=== PATIENT | female | born 1950 | race Caucasian/White ===

== ENCOUNTER → 2017-02-03 | Outpatient (CLI) | payer BC ==
[~2017-02-03] MED LIST: ASPEC325 PO; METO50TA16 PO; OXYC-57 PO
--- NOTE | 2017-02-03 13:32 | DIAGNOSTIC IMAGING REPORT ---
EXTREMITY NONVASCULAR LIMITED CLINICAL HISTORY: 66 years-old Female presenting with R07.89 Right-sided chest wall pain right lateral chest wall pain. TECHNIQUE: Real-time grayscale ultrasound imaging of the right chest wall and axilla was performed. Color Doppler was also performed. COMPARISON: None. FINDINGS: At the site of clinical interest along the right chest wall/flank inferior to the right axilla, normal subcutaneous fat and muscle noted. No lymphadenopathy. No fluid collection. No dilated lymphatics. IMPRESSION: 1. No sonographic abnormality at the site of clinical interest. Electronically signed by: Javier Rodriguez M.D. 02/03/2017 1:30 PM Dictated Date/Time: 02/03/2017 1:29 PM
--- NOTE | 2017-02-03 13:41 | DIAGNOSTIC IMAGING REPORT ---
R RIBS UNILATERAL WITH PA CHEST CLINICAL HISTORY: R07.89 Right-sided chest wall pain [id number] COMPARISON STUDY: None. FINDINGS: The lungs are clear. The heart is normal in size. No pleural effusions. No pneumothorax. No acute rib fractures. A 2.6 cm calcified splenic lesion. This is likely benign. IMPRESSION: No rib fractures. No pneumothorax. Electronically signed by: Gopi Trevino M.D. 02/03/2017 1:39 PM Dictated Date/Time: 02/03/2017 1:37 PM
== END | disposition home or self-care (01) ==
LOC: C.ULTR 12:38
PROVIDERS: ATTEND Physician Assistant Medical
DX: R07.89 Other chest pain (principal)

== ENCOUNTER → 2017-02-05 | Outpatient (CLI) | payer BC ==
--- NOTE | 2017-02-05 12:23 | DIAGNOSTIC IMAGING REPORT ---
THORACIC SPINE 3 VIEWS ROUTINE CLINICAL HISTORY: Right-sided back/chest wall pain COMPARISON STUDY: No previous studies for comparison. FINDINGS: The bones are osteopenic. There is ankylosis of the dorsal spine. The paraspinal line is not displaced. No acute fractures or traumatic subluxations are visualized. IMPRESSION: No acute fractures subluxations or destructive lesions are visualized. Electronically signed by: Stefano Johnson M.D. 02/05/2017 12:22 PM Dictated Date/Time: 02/05/2017 12:21 PM
== END | disposition home or self-care (01) ==
LOC: C.RAD 11:40
PROVIDERS: ATTEND Physician Assistant Medical
DX: R07.89 Other chest pain (principal)

== ENCOUNTER → 2017-02-19 | Outpatient (CLI) | payer BC ==
--- NOTE | 2017-02-19 15:57 | MAMMOGRAPHY REPORT ---
BILATERAL DIGITAL SCREENING MAMMOGRAM WITH CAD: 02/19/2017 CLINICAL HISTORY: Routine screening. The patient reported to the technologist that she has ongoing r ight breast tenderness. She had an ultrasound at the hospital on 02/03/2017 of the area of pain infer ior to the right axilla which showed no abnormality. TECHNIQUE: Current study was also evaluated with a Computer Aided Detection (CAD) system. Bilateral CC and MLO views were obtained. The patient returned later the same day for a repeat left CC view d ue to motion artifact, and a repeat right MLO view to include more pectoralis muscle. COMPARISON: Comparison is made to exams dated: 02/19/2016 mammogram, 02/15/2015 mammogram, 02/14/2014 mammogram, 02/13/2013 mammogram, 02/11/2012 mammogram, and 02/09/2011 mammogram - [facility]. BREAST COMPOSITION: The tissue of both breasts is almost entirely fatty. FINDINGS: No suspicious masses, calcifications, or areas of architectural distortion are noted in ei ther breast. There has been no significant interval change compared to prior exams. A few scattered bilateral benign-appearing calcifications are again noted. IMPRESSION: ACR BI-RADS CATEGORY 2: BENIGN There is no mammographic evidence of malignancy in either breast. A 1 year screening mammogram is rec ommended. Also recommend clinical follow-up for right breast pain. The patient will receive written notification of the results. Approximately 10% of breast cancers are not detected with mammography. A negative mammographic report should not delay biopsy if a clinically suggestive mass is present. Stefania Sullivan M.D. ah/:02/19/2017 14:05:33 Spinning Lathe Operator Automatic: Irene SAGASTUME(R)(M), [facility] letter sent: Normal 1/2 BI-RADS Code: ACR BI-RADS Category 2: Benign
== END | disposition home or self-care (01) ==
LOC: C.MAMM 10:38
PROVIDERS: ATTEND Internal Medicine
DX: Z12.31 Encounter for screening mammogram for malignant neoplasm of breast (principal)

== ENCOUNTER 2022-10-05 13:52 | Inpatient (IN) ==
[2022-10-05] MEDS ORDERED: SODIUM CHLORIDE 0.9% 1000ML 1,000 ML IV SCH (14:15)
[2022-10-05] MEDS ORDERED: dilTIAZem HCl 5 MG/ML 5 ML VIAL IV STA (14:19)
[2022-10-05 14:34] LABS: Basophils # (auto) 0.03 K/uL (0-0.2); Basophils % (auto) 0.4 %; Eosinophils # (auto) 0.02 K/uL (0-0.50); Eosinophils % (auto) 0.3 %; Hematocrit (blood only) 40.4 % (37.0-47.0); Hemoglobin 13.7 g/dl (12.0-16.0); Immature Granulocytes # (auto) 0.04 K/uL (0.01-0.20); Immature Granulocytes % (auto) 0.5 %; Lymphocytes # (auto) 1.27 K/uL (1.2-3.4); Lymphocytes % (auto) 16.5 %; Mean Corpuscular Hemoglobin 31.1 pg (25.0-34.0); Mean Corpuscular Hgb Conc 33.9 g/dL (32.0-36.0); Mean Corpuscular Volume 91.6 fL (80.0-100.0); Mean Platelet Volume 11.8 fL (9.4-12.4); Monocytes % (auto) 5.2 %; Neutrophils # (auto) 5.92 K/uL (1.40-6.50); Neutrophils % (auto) 77.1 %; Platelet Count 204 K/uL (130-400); RDW Standard Deviation 43.6 fL (36.4-46.3); Red Blood Count 4.41 M/uL (4.20-5.40); White Blood Count 7.68 K/ul (4.8-10.8)
--- NOTE | 2022-10-05 14:36 | XRay Report ---
XR chest 1V portable HISTORY: 71 years-old Female Dysrhythmia COMPARISON: CTA 06/22/2020 TECHNIQUE: AP view of the chest FINDINGS: Cardiac silhouette is mildly enlarged. Atherosclerosis of the aorta. No pneumothorax, pleural effusio n, airspace consolidation or pulmonary edema. Calcified splenic lesion again noted. Degenerative andrade ges of the shoulders and spine. Left shoulder rotator cuff calcific tendinosis. IMPRESSION: No acute process of the chest. ACT 112: Negative or not required by law. The above report was generated using voice recognition software. It may contain grammatical, syntax o r spelling errors. Electronically signed by: Jeison Rojas M.D. 10/05/2022 2:34 PM
[2022-10-05 14:44] LABS: Albumin Globulin Ratio 1.3 (0.9-2); Albumin Level 3.7 gm/dl (3.4-5.0); BUN Creatinine Ratio 27.8 (10-20); Bilirubin,Total 0.6 mg/dl (0.2-1.0); Calcium 9.5 mg/dl (8.6-10.3); Creatinine Clr Calc Pharmacy 53.9 ml/min; Est GFR (African American) 75.6 ml/min; Est GFR (Non-African American) 65.2 ml/min; Globulin 2.8 gm/dl (2.5-4.0); Magnesium 1.9 mg/dl (1.7-2.4); Potassium 3.9 mmol/L (3.5-5.1); Total Protein 6.5 gm/dl (6.0-8.3)
[2022-10-05 14:50] LABS: Troponin I High Sensitivity 13.1 pg/ml (0-14)
[2022-10-05 14:54] LABS: INR 1.1 (0.9-1.1); Partial Thromboplastin Ratio 0.9; Partial Thromboplastin Time 26.1 Seconds (21.0-31.0); Prothrombin Time 11.7 Seconds (9.0-12.0)
--- NOTE | 2022-10-05 15:08 | Emergency Department Note ---
Impression & Plan Atrial fibrillation with rapid ventricular response, Retrosternal chest pain ED Provider Note INFORMANT: Patient and ED PROVIDER(S): Lowell Martinez MD CHIEF COMPLAINT: Chest pain PLAN: Disposition: Admitted Condition: Good Outpatient prescription management: none Referral: None MEDICAL DECISION MAKING: Patient presented because of chest pain. She was found to be in rapid atrial fibrillation. She received Cardizem prehospital and received a second dose here. Patient was doing well. Her laboratory testing revealed unremarkable CBC and chemistry panel. Twelve-lead ECG on arrival revealed atrial fibrillation with RVR at 124. No ischemia. Patient had an unremarkable chest x-ray. Patient was still noted to be hypertensive and borderline tachycardic but rate was better controlled after the Cardizem. She was given oral metoprolol. Further management will be necessary. Patient and in agreement. Consultation was made with Dr. Campos Menon of the [facility] service. Case was discussed and diagnostics were reviewed. Patient was evaluated in the ER for further management. He will manage anticoagulation after evaluation of patient. Discussed with scheduling manager After review of the information above and other included data, I feel the patient requires admission. Triage Nursing notes reviewed and agree them. Vital Signs: reviewed and remarkable for tachycardia Prior /Outside records reviewed: Cardiac records reviewed. Patient has mitral regurg. Differential diagnosis: ACS premature contractions, electrolyte abnormality, cardiac dysrhythmia, thyroid dysfunction, pulmonary embolism, infection, gastrointestinal, dissection, as well as other pathologies. Diagnostics, as interpreted by me: ECG: Twelve-lead ECG reveals a atrial fibrillation with rapid ventricular response at [address] No ST elevation. Cardiac Monitoring: Cardiac monitoring ordered by me: The patient was placed on continuous cardiac monitoring and observed. It revealed a atrial fibrillation at 108 beats per minute without ectopy or evidence of dysrhythmia. Medical decision rules: none Imaging studies: Chest x-ray. Findings: A chest x-ray was performed and revealed no pneumothorax, effusion, infiltrate, pulmonary edema, free air under the diaphragm, or wide mediastinum. Impression: No acute disease. HPI: The patient is a 71year old female who presents to the Emergency Room with complaints of chest pain. This started this morning around 1130 and is currently resolved. Patient states that lasted well over an hour. She had to rest. She felt too weak to make it home off of her walk so she called her to pick her up. EMS was summoned. The patient also notes the following associated symptoms, feeling clammy and sweaty, shortness of breath. The patient has been given Cardizem 10 mg IV, oral aspirin by EMS for relieving factors. Current pain is rated as 0/10. Patient was found to be in rapid atrial fibrillation with a heart rate up to 170 by EMS. No reported ST elevation. Pt denies LOC, headache, fevers, chills, visual changes, neck pain, nausea, vomiting, abdominal pain, back pain, melena, hematochezia, urinary symptoms, numbness, focal weakness, lymphadenopathy, rash, or other complaints. PAST MEDICAL HISTORY: See Below, mitral regurgitation, hypertension PAST SURGICAL HISTORY: See Below, SOCIAL HISTORY: See Below, HOME MEDICATIONS: See Below ALLERGIES: See Below VITALS: See Below PHYSICAL EXAMINATION: GENERAL: Awake, alert, well-appearing, in no distress HENT: Normocephalic, atraumatic. Oropharynx unremarkable. EYES: Normal conjunctiva. Sclera non-icteric. NECK: Inspection normal. Non-tender. Supple. No nuchal rigidity. FROM. No masses. RESPIRATORY: Clear to auscultation. No wheezes. No rales. Normal respiratory effort. CARDIAC: Tachycardic rate. Irregular rhythm. No murmurs. No rubs. Extremities warm and well perfused. Pulses equal. No JVD. GI: Soft, non-distended. No tenderness to palpation. No rebound or guarding. No masses. RECTAL: Deferred. MUSCULOSKELETAL: Atraumatic. Chest examination reveals no tenderness. The back is symmetrical on inspection without obvious abnormality. There is no CVA tenderness to palpation. No joint edema. LOWER EXTREMITIES: Calves are equal size bilaterally and non-tender. No edema. No discoloration. NEURO: Normal sensorium. No sensory or motor deficits noted. SKIN: No rash or jaundice noted. Past Med/Surg History Medical History Dyslipidemia Heart murmur Hypertension Osteoporosis Surgical History History of ankle surgery Hx of arthroscopic knee surgery Hx of colonoscopy Family History Other No family history of adverse response to anesthesia Denies family history of Ovarian cancer Prostate cancer Myocardial infarction Breast cancer Colorectal cancer Social History Smoking Status: Never smoker Second Hand Exposure: No; Do You Dip or Chew Tobacco: No; Hx Alcohol Use: No Hx Substance Use: No Preferred Language: Bulgarian Communication Ability: Effective Hand Screen Printer Required: No Beliefs That Will Affect Care: None marital status: Current Living Situation: Spouse current occupational status: retired Other Information That Helps Us Care for You: No Feels Safe at Home: Yes Safety Concerns: Feels Safe At This Time Diet: Weight Watchers and regular caffeine: Yes Dental Care, Regularly: Yes Physical Activity Frequency: Daily Seatbelt Use: always Sunscreen Use: Yes Assistive Devices: None Allergies Allergies Allergy/AdvReac Type Severity Reaction Status Date / Time rosuvastatin AdvReac Intermediate myalgia Verified 10/05/22 16:01 alendronate sodium AdvReac Itching Verified 10/05/22 16:01 Home Meds Home Medications Medication Instructions Recorded Confirmed calcium carbonate 600 mg calcium 600 mg PO BID 03/30/19 10/05/22 (1,500 mg) tablet (Calcium) cholecalciferol (vitamin D3) 25 2,000 unit PO QAM 07/11/20 10/05/22 mcg (1,000 unit) capsule Previous Rx's Medication Instructions Recorded irbesartan 150 mg tablet 150 mg PO BID #180 tabs 06/11/22 methylprednisolone 4 mg tablets in 4 mg PO .COMPLEX #21 ea 09/29/22 a dose pack Results & Data (ED) Vital Signs Vital Signs - 24 hr 10/05/22 14:01 10/05/22 14:01 10/05/22 13:26 Temperature 36.7 C Temperature Source Oral Pulse Rate 126 H Pulse Rate [Apical] 126 H Pulse Rhythm Irregular Pulse Rhythm [Apical] Irregular Pulse Strength Normal Pulse Strength [Apical] Normal Respiratory Rate 21 21 Respiratory Effort / Characteristics Non-Labored Non-Labored Respiratory Depth Normal Normal Respiratory Pattern Agonal Regular Blood Pressure 182/104 H Blood Pressure [Right Arm] 182/104 H Blood Pressure Mean 130 Blood Pressure Mean [Right Arm] 130 Pulse Oximetry 97 97 Oxygen Delivery Method Room Air Room Air Room Air Sepsis Recent Fever Within 48 Hours No Sepsis New/Unexplained Change in Mental Status No Sepsis Action Taken by Nursing Physician Notified 10/05/22 14:06 10/05/22 15:00 Temperature Temperature Source Pulse Rate 117 H 118 H Pulse Rate [Apical] Pulse Rhythm Pulse Rhythm [Apical] Pulse Strength Pulse Strength [Apical] Respiratory Rate 18 Respiratory Effort / Characteristics Respiratory Depth Respiratory Pattern Blood Pressure 193/119 H Blood Pressure [Right Arm] Blood Pressure Mean 143 Blood Pressure Mean [Right Arm] Pulse Oximetry 95 Oxygen Delivery Method Room Air Sepsis Recent Fever Within 48 Hours Sepsis New/Unexplained Change in Mental Status Sepsis Action Taken by Nursing Laboratory Data 10/05/22 14:12 10/05/22 14:12 Lab Results 10/05/22 10/05/22 10/05/22 Range/Units 14:12 14:12 14:12 WBC 7.68 (4.8-10.8) K/ul RBC 4.41 (4.20-5.40) M/uL Hgb 13.7 (12.0-16.0) g/dl Hct 40.4 (37.0-47.0) % MCV 91.6 (80.0-100.0) fL MCH 31.1 (25.0-34.0) pg MCHC 33.9 (32.0-36.0) g/dL RDW Std Deviation 43.6 (36.4-46.3) fL RDW Coeff of Karlo 13.0 (11.5-14.5) % Plt Count 204 (130-400) K/uL MPV 11.8 (9.4-12.4) fL Immature Gran % (Auto) 0.5 % Neut % (Auto) 77.1 % Lymph % (Auto) 16.5 % Crawford % (Auto) 5.2 % Eos % (Auto) 0.3 % Baso % (Auto) 0.4 % Neut # (Auto) 5.92 (1.40-6.50) K/uL Lymph # (Auto) 1.27 (1.2-3.4) K/uL Crawford # (Auto) 0.40 (0.11-0.59) K/uL Eos # (Auto) 0.02 (0-0.50) K/uL Baso # (Auto) 0.03 (0-0.2) K/uL Immature Gran # (Auto) 0.04 (0.01-0.20) K/uL PT 11.7 (9.0-12.0) Seconds INR 1.1 (0.9-1.1) APTT 26.1 (21.0-31.0) Seconds PTT Ratio 0.9 Sodium 141 (136-145) mmol/L Potassium 3.9 (3.5-5.1) mmol/L Chloride 109 H (98-107) mmol/L Carbon Dioxide 26 (21-32) mmol/L Anion Gap 6 (3-11) BUN 25 H (6-23) mg/dl Creatinine 0.90 (0.6-1.2) mg/dl Est Cr Clr Drug Dosing 53.9 ml/min Est GFR ( Amer) 75.6 ml/min Est GFR (Non-Af Amer) 65.2 ml/min BUN/Creatinine Ratio 27.8 H (10-20) Glucose 96 (70-99(Fasting)) mg/dl Calcium 9.5 (8.6-10.3) mg/dl Magnesium 1.9 (1.7-2.4) mg/dl Total Bilirubin 0.6 (0.2-1.0) mg/dl AST 15 (13-39) U/L ALT 15 (7-52) U/L Alkaline Phosphatase 40 (34-104) U/L Troponin I High Sens 13.1 (0-14) pg/ml Total Protein 6.5 (6.0-8.3) gm/dl Albumin 3.7 (3.4-5.0) gm/dl Globulin 2.8 (2.5-4.0) gm/dl Albumin/Globulin Ratio 1.3 (0.9-2) TSH (0.300-4.500) uIu/ml 10/05/22 Range/Units 14:12 WBC (4.8-10.8) K/ul RBC (4.20-5.40) M/uL Hgb (12.0-16.0) g/dl Hct (37.0-47.0) % MCV (80.0-100.0) fL MCH (25.0-34.0) pg MCHC (32.0-36.0) g/dL RDW Std Deviation (36.4-46.3) fL RDW Coeff of Karlo (11.5-14.5) % Plt Count (130-400) K/uL MPV (9.4-12.4) fL Immature Gran % (Auto) % Neut % (Auto) % Lymph % (Auto) % Crawford % (Auto) % Eos % (Auto) % Baso % (Auto) % Neut # (Auto) (1.40-6.50) K/uL Lymph # (Auto) (1.2-3.4) K/uL Crawford # (Auto) (0.11-0.59) K/uL Eos # (Auto) (0-0.50) K/uL Baso # (Auto) (0-0.2) K/uL Immature Gran # (Auto) (0.01-0.20) K/uL PT (9.0-12.0) Seconds INR (0.9-1.1) APTT (21.0-31.0) Seconds PTT Ratio Sodium (136-145) mmol/L Potassium (3.5-5.1) mmol/L Chloride (98-107) mmol/L Carbon Dioxide (21-32) mmol/L Anion Gap (3-11) BUN (6-23) mg/dl Creatinine (0.6-1.2) mg/dl Est Cr Clr Drug Dosing ml/min Est GFR ( Amer) ml/min Est GFR (Non-Af Amer) ml/min BUN/Creatinine Ratio (10-20) Glucose (70-99(Fasting)) mg/dl Calcium (8.6-10.3) mg/dl Magnesium (1.7-2.4) mg/dl Total Bilirubin (0.2-1.0) mg/dl AST (13-39) U/L ALT (7-52) U/L Alkaline Phosphatase (34-104) U/L Troponin I High Sens (0-14) pg/ml Total Protein (6.0-8.3) gm/dl Albumin (3.4-5.0) gm/dl Globulin (2.5-4.0) gm/dl Albumin/Globulin Ratio (0.9-2) TSH 0.749 (0.300-4.500) uIu/ml Administered Medications Calcium Carbonate (Calcium Carbonate 1250mg Tab) 1,250 mg PO BID KATHLEEN Stop: 11/04/22 20:59 Last Admin: 10/05/22 20:14 Dose: 1,250 mg Documented By: TOSIN Losartan Potassium (Losartan Potassium 50 Mg Tab) 50 mg PO BID KATHLEEN Stop: 11/04/22 20:59 Last Admin: 10/05/22 20:14 Dose: 50 mg Documented By: TOSIN Discontinued Medications Apixaban (Apixaban 5 Mg Tablet) 5 mg PO ONE STA Stop: 10/05/22 17:58 Last Admin: 10/05/22 20:13 Dose: 5 mg Documented By: TOSIN Diltiazem HCl (Diltiazem Hcl 5 Mg/Ml 5 Ml Vial) 10 mg IV NOW STA Stop: 10/05/22 14:20 Last Admin: 10/05/22 14:27 Dose: 10 mg Documented By: LORETTA Co-signed By: YAW Sodium Chloride (Nss 1000ml) 1,000 mls @ 125 mls/hr IV .Q8H KATHLEEN Stop: 11/04/22 14:14 Last Infusion: 10/05/22 18:58 Dose: 0 mls/hr Documented By: Admin: 10/05/22 14:27 Dose: 125 mls/hr Documented By: LORETTA Magnesium Sulfate/Dextrose (Magnesium Sulfate / D5w) 1 gm in 100 mls @ 100 mls/hr IV NOW STA Stop: 10/05/22 16:28 Last Infusion: 10/05/22 17:00 Dose: 0 mls/hr Documented By: Admin: 10/05/22 15:39 Dose: 100 mls/hr Documented By: DAYANA Metoprolol Tartrate (Metoprolol Tartrate 25 Mg Tab) 25 mg PO NOW STA Stop: 10/05/22 15:11 Last Admin: 10/05/22 15:39 Dose: 25 mg Documented By: DAYANA Potassium Chloride (Potassium Chloride Crtab 20 Meq Tabcr) 20 meq PO NOW STA Stop: 10/05/22 15:19 Last Admin: 10/05/22 15:39 Dose: 20 meq Documented By: DAYANA Imaging Data Radiologist's Impression: Chest X-Ray 10/05/22 14:06 XR chest 1V portable HISTORY: 71 years-old Female Dysrhythmia COMPARISON: CTA 06/22/2020 TECHNIQUE: AP view of the chest FINDINGS: Cardiac silhouette is mildly enlarged. Atherosclerosis of the aorta. No pneumothorax, pleural effusion, airspace consolidation or pulmonary edema. Calcified splenic lesion again noted. Degenerative changes of the shoulders and spine. Left shoulder rotator cuff calcific tendinosis. IMPRESSION: No acute process of the chest. ACT 112: Negative or not required by law. The above report was generated using voice recognition software. It may contain grammatical, syntax or spelling errors. Electronically signed by: Jeison Rojas M.D. 10/05/2022 2:34 PM Discharge Plan Visit Data Chief Complaint: Chest Pain Stated Complaint: CHEST PRESSURE, NEW ONSET AFIB ED Provider: Lowell Martinez Discharge Problem: Atrial fibrillation with rapid ventricular response, Retrosternal chest pain Patient Disposition: Admitted As Inpatient Discharge Instructions Interventions: ED Discharge Assessment Last Done: 10/05/22 18:00
[2022-10-05] MEDS ORDERED: METOPROLOL TARTRATE 25 MG TAB PO STA (15:10)
[2022-10-05] MEDS ORDERED: POTASSIUM CHLORIDE CRTAB 20 MEQ TABCR PO STA (15:18)
[2022-10-05] MEDS ORDERED: MAGNESIUM SULFATE / D5W 1 GM/100 ML BAG IV STA (15:29)
--- NOTE | 2022-10-05 15:30 | History & Physical Report ---
Date of Service October 05, 2022 Assessment & Plan (1) Atrial fibrillation with rapid ventricular response: Plan: New onset. Possible slightly increased risk with Medrol dosepak but she seems predisposed to this irregardless [id number] - 3, 4.6% stroke/TIA/systemic embolism, recommend anticoagulation with Eliquis Start rate control with metoprolol tartrate 25mg PO q6h with hold parameters - consider switch to carvedilol if blood pressure remains high TSH WNL COntinue to trend troponin overnight but suspect just demand-ischemia, low suspicion of ACS (2) Retrosternal chest pain: Plan: Suspect secondary rate control (3) Heart murmur: Plan: Noted history of this. None currently heard on exam although this may be because she is in a. fib wth a rapid rate. (4) Hypertension: Plan: Continue irbesartan or hospital formulary equivalent Plan VTE Prophylaxis - Eliquis Diet - regular Disposition - admit to PCU Admission and Anticipated Discharge Date Admission Date: October 05, 2022 History of Present Illness Chief Complaint: Chest pain Primary Care Provider: Houston Gillis MD Iliana Jurado is a 71 year old female who presents to the ER with chest pain. This occurred for about 1 hour from 11:30am to 12:30pm earlier today while out for her walk. She did feel something may have not will right earlier than this but no specific symptoms. She felt her normal self yesterday. Pain 8/10 at worse, currently 0/10 after diltiazem given by EMS and in ER. Associated back pain and just felt "not the same", "like half asleep". No associated diaphoresis, nausea or shortness of breath. She denies any palpitations, orthopnea, PND, claudication, leg swelling, presyncope or syncope. She initially tried to walk through it but her symptoms became worse therefore she had to sit down on a bench and she called her to help. Her noted she appeared clammy and took her to the ambulance station. EKG noted she was in atrial fibrillation with a rapid rate. She was given diltiazem 10mg IV en route to the hospital and her symptoms significantly improved. Currently without any pain in the ER. She follows cardiology due to a heart murmur and mild mitral regurgitations but no known coronary artery disease or prior episodes of atrial fibrillation. Recetly she was prescribed a Medrol Dosepak for sciatica type symptoms. She reports this has now finished and her symptoms have resolved. Allergies Allergy/AdvReac Type Severity Reaction Status Date / Time rosuvastatin AdvReac Intermediate myalgia Verified 10/05/22 16:01 alendronate sodium AdvReac Itching Verified 10/05/22 16:01 Home Medications Medication Instructions Recorded Confirmed Type calcium carbonate 600 mg calcium 600 mg PO BID 03/30/19 10/05/22 History (1,500 mg) tablet (Calcium) cholecalciferol (vitamin D3) 25 2,000 unit PO QAM 07/11/20 10/05/22 History mcg (1,000 unit) capsule irbesartan 150 mg tablet 150 mg PO BID #180 tabs 06/11/22 10/05/22 Rx methylprednisolone 4 mg tablets in 4 mg PO .COMPLEX #21 ea 09/29/22 10/05/22 Rx a dose pack Past Med/Surg History Medical History Dyslipidemia Heart murmur slight --follows with [facility] last visit 04/2021 goes annually- Hypertension Osteoporosis Surgical History History of ankle surgery ORIF- RIGHT Hx of arthroscopic knee surgery RT Hx of colonoscopy Family History Other No family history of adverse response to anesthesia Denies family history of Ovarian cancer Prostate cancer Myocardial infarction Breast cancer Colorectal cancer Social History Smoking Status: Never smoker Second Hand Exposure: No; Do You Dip or Chew Tobacco: No; Hx Alcohol Use: No Hx Substance Use: No Preferred Language: [place]ian Communication Ability: Effective Adjunct Physical Education Instructor Required: No Beliefs That Will Affect Care: None marital status: Current Living Situation: Spouse current occupational status: retired Other Information That Helps Us Care for You: No Feels Safe at Home: Yes Safety Concerns: Feels Safe At This Time Diet: Weight Watchers and regular caffeine: Yes Dental Care, Regularly: Yes Physical Activity Frequency: Daily Seatbelt Use: always Sunscreen Use: Yes Assistive Devices: None Review of Systems Review of Systems: All systems reviewed & are unremarkable except as noted in HPI & below Physical Exam Constitutional: WD/WN, vitals as above Eyes: PERRL, conjunctivae normal, anicteric sclerae ENMT: Mouth: oral mucous membranes not dry Respiratory: normal respiratory effort, lungs clear to auscultation Cardiovascular: Rate/Rhythm: + tachycardic and + irregularly irregular Heart Sounds: no murmur Vessels: no JVD Extremities: normal capillary refill and + pedal edema (trace equal b/l pitting); no calf tenderness Gastrointestinal (Abdomen): normal bowel sounds, soft, nontender, no hepatosplenomegaly Musculoskeletal: no cyanosis or clubbing, extremities motor strength 5/5 Skin: no rashes, warm and dry Neurologic: moves all extremities and awake; not confused Psychiatric: A+Ox3, euthymic affect Results & Data Results & Data Vital Signs (Past 12 Hours) Vital Signs Temp Pulse Pulse Resp BP BP Pulse Ox 10/05/22 14:06 117 H 10/05/22 13:26 36.7 C 126 H 21 182/104 H 97 10/05/22 14:01 126 H 21 182/104 H 97 10/05/22 14:01 O2 Del Method 10/05/22 14:06 10/05/22 13:26 Room Air 10/05/22 14:01 Room Air 10/05/22 14:01 Room Air Laboratory Results Abnormal lab results 10/05/22 Range/Units 14:12 Chloride 109 H (98-107) mmol/L BUN 25 H (6-23) mg/dl BUN/Creatinine Ratio 27.8 H (10-20) Diagnostic Findings XR chest 1V portable HISTORY: 71 years-old Female Dysrhythmia COMPARISON: CTA 06/22/2020 TECHNIQUE: AP view of the chest FINDINGS: Cardiac silhouette is mildly enlarged. Atherosclerosis of the aorta. No pneumothorax, pleural effusion, airspace consolidation or pulmonary edema. Calcified splenic lesion again noted. Degenerative changes of the shoulders and spine. Left shoulder rotator cuff calcific tendinosis. IMPRESSION: No acute process of the chest. Medications Administered ER Medications Given: NSS 1000ml @ 125ml/hr Diltiazem 10mg IV Metoprolol 25mg PO ECG Rate (beats per minute): 116 Rhythm: atrial fibrillation Findings: + other (minimal voltage criteria for LVH); no acute ischemic change Comparison ECG Date: from (Jun 22, 2020) Change: the following changes noted (a. fib has replaced NSR) Code Status & VTE Plan Code Status Full VTE Prophylaxis Plan VTE Prophylaxis will be ordered: Yes PG Care Time/CCT Total # of Minutes Spent Total Time Spent with Patient: Total time spent is greater than 50% in coordination of care (as documented) at patient's floor/unit and/or counseling patient: Coding Level of Care Code 08055 INT INP/OBS CARE 2/55MIN Diagnoses Atrial fibrillation with rapid ventricular response I48.91 Retrosternal chest pain R07.2 Heart murmur R01.1 Hypertension I10
[2022-10-05] MEDS ORDERED: APIXABAN 5 MG TABLET PO STA (17:57)
[2022-10-05] MEDS ORDERED: ACETAMINOPHEN 325 MG TAB PO PRN (18:57)
[2022-10-05] MEDS: LOSARTAN POTASSIUM 50 MG TAB PO SCH (20:14)
[2022-10-05] MEDS: CALCIUM CARBONATE 1250MG TAB PO SCH (20:14)
[2022-10-06 06:17] LABS: Hematocrit (blood only) 37.1 % (37.0-47.0); Hemoglobin 12.4 g/dl (12.0-16.0); Mean Corpuscular Hemoglobin 30.3 pg (25.0-34.0); Mean Corpuscular Hgb Conc 33.4 g/dL (32.0-36.0); Mean Corpuscular Volume 90.7 fL (80.0-100.0); Mean Platelet Volume 11.4 fL (9.4-12.4); Platelet Count 207 K/uL (130-400); RDW Coefficient of Variation 13.2 % (11.5-14.5); RDW Standard Deviation 43.8 fL (36.4-46.3); Red Blood Count 4.09 M/uL (4.20-5.40); White Blood Count 8.14 K/ul (4.8-10.8)
[2022-10-06 06:33] LABS: Calcium 8.5 mg/dl (8.6-10.3); Creatinine Clr Calc Pharmacy 65.5 ml/min; Est GFR (African American) 97.4 ml/min; Magnesium 2.1 mg/dl (1.7-2.4); Potassium 4.1 mmol/L (3.5-5.1)
[2022-10-06] MEDS: CALCIUM CARBONATE 1250MG TAB PO SCH (08:09)
[2022-10-06] MEDS: LOSARTAN POTASSIUM 50 MG TAB PO SCH (08:10)
--- NOTE | 2022-10-06 08:39 | Electrocardiogram Report ---
Test Reason : Blood Pressure : / mmHG Vent. Rate : 124 BPM Atrial Rate : 000 BPM P-R Int : 000 ms QRS Dur : 084 ms QT Int : 304 ms P-R-T Axes : 000 004 055 degrees QTc Int : 436 ms Atrial fibrillation with rapid ventricular response Nonspecific ST and T wave abnormality Abnormal ECG When compared with ECG of 22-JUN-2020 17:12, Atrial fibrillation has replaced Sinus rhythm Vent. rate has increased BY [address] and T wave abnormality now present Confirmed by Raimundo Queen ([id number]) on 10/06/2022 8:39:02 AM Referred By: REFERRED SELF Confirmed By:Raimundo Queen
--- NOTE | 2022-10-06 08:40 | Electrocardiogram Report ---
Test Reason : Blood Pressure : / mmHG Vent. Rate : 116 BPM Atrial Rate : 000 BPM P-R Int : 000 ms QRS Dur : 086 ms QT Int : 262 ms P-R-T Axes : 000 010 020 degrees QTc Int : 364 ms Atrial fibrillation with rapid ventricular response Nonspecific ST abnormality Abnormal ECG When compared with ECG of 05-OCT-2022 13:59, No significant change was found Confirmed by Raimundo Queen ([id number]) on 10/06/2022 8:39:58 AM Referred By: REFERRED SELF Confirmed By:Raimundo Queen
[2022-10-06] MEDS ORDERED: METOPROLOL TARTRATE 25 MG TAB PO SCH (09:00)
[2022-10-06] MEDS ORDERED: APIXABAN 5 MG TABLET PO SCH ×2 (09:00→14:00)
[2022-10-06] MEDS ORDERED: CHOLECALCIFEROL 1,000 UNITS 25 MCG TAB PO SCH (09:00)
--- NOTE | 2022-10-06 12:49 | XCELERA ---
[id number]
--- NOTE | 2022-10-06 13:29 | Discharge Summary ---
Discharge Summary Date of Service October 06, 2022 Notes For Next Care Provider Medication Changes From Visit Eliquis 5mg po bid Toprol XL 25mg po hs Reduce irbesartan to 75mg po daily Admission HPI Per Admitting Provider Iliana Jurado is a 71 year old female who presents to the ER with chest pain. This occurred for about 1 hour from 11:30am to 12:30pm earlier today while out for her walk. She did feel something may have not will right earlier than this but no specific symptoms. She felt her normal self yesterday. Pain 8/10 at worse, currently 0/10 after diltiazem given by EMS and in ER. Associated back pain and just felt "not the same", "like half asleep". No associated diaphoresis, nausea or shortness of breath. She denies any palpitations, orthopnea, PND, claudication, leg swelling, presyncope or syncope. She initially tried to walk through it but her symptoms became worse therefore she had to sit down on a bench and she called her to help. Her noted she appeared clammy and took her to the ambulance station. EKG noted she was in atrial fibrillation with a rapid rate. She was given diltiazem 10mg IV en route to the hospital and her symptoms significantly improved. Currently without any pain in the ER. She follows cardiology due to a heart murmur and mild mitral regurgitations but no known coronary artery disease or prior episodes of atrial fibrillation. Recetly she was prescribed a Medrol Dosepak for sciatica type symptoms. She reports this has now finished and her symptoms have resolved. Principal Dx & Hospital Course #1 = Principal Diagnosis (1) Atrial fibrillation with rapid ventricular response: New onset. Possible slightly increased risk with Medrol dosepak but she seems predisposed to this irregardless with dilated LA [id number] - 3, 4.6% stroke/TIA/systemic embolism, recommend anticoagulation with Eliquis 5mg po bid No h/o bleeding Rates in the 170s with EMS and was given diltiazem, had associated chest pain that resolved with rate control Started on metoprolol tartrate and spontaneously converted to NSR with rates in 60s after admission Troponin 16/14, very mild demand ischemia 2/2 rapid atrial fibrillation ECHO with mod MR, RVSP elevated at 30-40 mmHg, and mod dilated LA, no WMA and EF preserved Continue rate control with Toprol XL 25mg PO hs Reduce irbesartan to 75mg po daily at home TSH WNL f/u with Cardiology as outpt started Eliquis 5mg po bid (2) Retrosternal chest pain: 2/2 DORIAN, resolved with rate control CXR negative, trop trended downward from mild elevation as above ECHO no WMA (3) Heart murmur: mild MR previously, today's ECHO with mod MR follows with Cardio as outpt (4) Hypertension: Continue irbesartan at reduced dose after starting Toprol XL 25mg as above Plan VTE Prophylaxis - Eliquis Disposition - dc to home Discussed her care with her Financial Specialist, Dr. Zee who will f/u in office Discharge Exam Constitutional WD/WN, vitals as above Respiratory normal respiratory effort, lungs clear to auscultation Cardiovascular RRR, no murmur, no edema Gastrointestinal (Abdomen) normal bowel sounds, soft, nontender, no hepatosplenomegaly Neurologic PERRL, EOMI, accommodation nl, no face palsy, no dysarthria Psychiatric A+Ox3, euthymic affect Updated Medication List Medication Instructions Recorded Confirmed Type calcium carbonate 600 mg calcium 600 mg PO BID 03/30/19 10/05/22 History (1,500 mg) tablet (Calcium) cholecalciferol (vitamin D3) 25 2,000 unit PO QAM 07/11/20 10/05/22 History mcg (1,000 unit) capsule irbesartan 150 mg tablet 150 mg PO BID #180 tabs 06/11/22 10/05/22 Rx methylprednisolone 4 mg tablets in 4 mg PO .COMPLEX #21 ea 09/29/22 10/05/22 Rx a dose pack apixaban 5 mg tablet (Eliquis) 5 mg PO BID #60 tabs 10/06/22 Rx irbesartan 75 mg tablet 75 mg PO DAILY #30 tabs 10/06/22 Rx metoprolol succinate 25 mg 25 mg PO HS #30 tabs 10/06/22 Rx tablet,extended release 24 hr (Toprol XL) Hospital Stay Data Consultations 10/05/22 15:26 ED Decision to Admit Stat Procedures Performed ECHO Pending Results Patient Have Any Pending Studies at Discharge: No Discharge Instructions Given to Patient (Per Discharging Provider) You were admitted with a rapid irregular heart rhythm called atrial fibrill ation. You were given medication to slow your heart rate down and then you converted on your own to a normal heart rhythm again. You should continue on the metoprolol to keep your heart rate controlled, and started on Eliquis to help thin the blood and reduce your risk for stroke that can be associated with atrial fibrillation. Please follow up with Dr. Zee of Cardiology for further evaluation. If you have any trouble with chest pain, lightheadedness, passing out, bleeding from anywhere, or fall and hit your head resulting in a headache, you should get checked out right away at the hospital. Total Time Total Time Spent Total Time Spent (In Minutes): 40 min Coding Level of Care Code 25461 INP/OBS DISCH >30 MIN Diagnoses Atrial fibrillation with rapid ventricular response I48.91 Retrosternal chest pain R07.2 Heart murmur R01.1 Hypertension I10
[2022-10-06] MEDS ORDERED: APIXABAN 5 MG TABLET PO ONE (21:00)
== END 2022-10-06 15:22 | disposition home or self-care (01) | DRG 309 ==
LOC: ED 13:52 → 4W 15:22 → SUATTDRO 15:22 → 4W 18:00